=== PATIENT | female | born 1960 | race African-American/Black ===

== ENCOUNTER 2019-03-22 00:03 | Emergency (ER) | payer SELFPAY ==
[~2019-03-22] VITALS: Ht 167.6 cm; Wt 100.0 kg
[~2019-03-22 00:03] MED LIST: AMLO10TA80 PO; ASPI-1079 PO; ASPI-1159 PO; CLON0.2T PO; GLIP10TA10 PO; HYDR-2510 PO; HYDR-4133 PO; INSU3INS6 SUBCUT; METF-416 PO; METO-411 PO; METO100T16 PO; PROSOL IH
[2019-03-22] MEDS ORDERED: KETOROLAC 60MG/2ML VIAL IM ONE (01:30)
[2019-03-22 03:15] VITALS: BP 118/60
== END 2019-03-22 03:37 | disposition home or self-care (01) ==
LOC: ER 00:03
DX: G89.29 Other chronic pain (principal); M25.562 Pain in left knee; E11.9 Type 2 diabetes mellitus without complications; I10 Essential (primary) hypertension; Z79.82 Long term (current) use of aspirin; Z79.4 Long term (current) use of insulin
CPT/HCPCS: 73562; 93971; 96372; 99284; J1885

== ENCOUNTER 2023-07-01 06:22 | Emergency (ER) | payer OTHER ==
[~2023-07-01] VITALS: Ht 172.7 cm; Wt 78.0 kg
[~2023-07-01 06:22] MED LIST changes: +ALBU5SOL18 IH; -ASPI-1159 PO; +ASPI-1497 PO; -HYDR-2510 PO; +HYDR50TA PO; -PROSOL IH
[2023-07-01 06:31] VITALS: BP 170/78; PULSE 94; RESP 18; TEMP 98.4; O2SAT 98
[2023-07-01] MEDS ORDERED: SODIUM CHLORIDE 0.9% 1,000 ML IV ONE (07:15)
[2023-07-01] MEDS ORDERED: ASPIRIN 81MG TABLET PO ONE (07:15)
[2023-07-01 07:45] LABS: BASOPHILS % 0.2 % (0.0-2.0); DIFFERENTIAL COMMENT 0; EOSINOPHILS % 0.8 % (0.0-5.0); HEMATOCRIT. 38.1 % (36.0-48.0); HEMOGLOBIN. 12.3 g/dL (12.0-16.0); LYMPHOCYTES % 29.2 % (20.0-50.0); MEAN CORPUSCULAR HEMOGLOBIN 25.6 pg (28.0-32.0); MEAN CORPUSCULAR HGB CONC 32.4 g/dL (31.0-37.0); MEAN CORPUSCULAR VOLUME 79.1 fL (81.0-99.0); MEAN PLATELET VOLUME 9.1 fl (7.4-10.4); MONOCYTES % 5.8 % (2.0-8.0); PLATELET 273 x1000/uL (130-400); RED BLOOD CELL COUNT 4.81 mill/uL (4.2-5.4); RED CELL DISTRIBUTION WIDTH 14.7 % (11.6-14.6); WHITE BLOOD COUNT 8.9 x1000/uL (4.5-11.0)
[2023-07-01 07:55] LABS: CHLORIDE 109 mEq/L (98-107); INDEX HEMOLYSI 1 (1-3); INDEX ICTERIC 1 (1-4); INDEX LIPEMIC 1 (1-3); POTASSIUM 3.4 mEq/L (3.5-5.1); SODIUM 139 mEq/L (136-145)
[2023-07-01 08:00] LABS: CLARITY URINE CLEAR (CLEAR); COLOR URINE YELLOW (YELLOW); GLUCOSE URINE NEGATIVE (NEGATIVE); KETONES URINE NEGATIVE (NEGATIVE); LEUKOCYTE ESTERASE URINE NEGATIVE (NEGATIVE); NITRITE URINE NEGATIVE (NEGATIVE); OCCULT BLOOD URINE NEGATIVE (NEGATIVE); PROTEIN URINE 1+ (NEGATIVE); SPECIFIC GRAVITY URINE 1.008 (1.005-1.030); UROBILINOGEN URINE 0.2 E.U./dL (0.2-1.0)
[2023-07-01 08:03] LABS: RBC URINE 0-2 /hpf (0-2); YEAST URINE NONE SEEN
[2023-07-01 08:13] LABS: ALANINE AMINOTRANSFERASE 22 IU/L (13-61); ALBUMIN 3.7 g/dL (3.4-5.0); ASPARTATE AMINOTRANSFERASE 12 IU/L (15-37); BETA HYDROXYBUTYRATE 0.2 mMol/L (0.0-0.3); BILIRUBIN TOTAL 0.2 mg/dL (0.1-1.0); CALCIUM 9.5 mg/dL (8.5-10.1); CARBON DIOXIDE 28 mEq/L (21-32); CREATININE 0.9 mg/dL (0.6-1.3); GLUCOSE 211 mg/dL (70-105); NT PRO B-TYPE NATRIURETIC PEP 35 pg/mL (5-125); PROTEIN TOTAL 7.9 g/dL (6.0-8.3); UREA NITROGEN BLOOD 14 mg/dL (7-21)
[2023-07-01 08:16] LABS: BACTERIA URINE FEW; SQUAMOUS EPITHELIAL CELL URINE FEW /lpf (RARE/1+); WBC URINE 0-2 /hpf (0-2)
[2023-07-01 09:55] LABS: TROPONIN I HIGH SENSITIVITY 8 ng/L (<54)
[2023-07-01] MEDS ORDERED: POTASSIUM CHLORIDE 10MEQ TABLET SR PO ONE (10:45)
== END 2023-07-01 12:07 | disposition home or self-care (01) ==
LOC: ER 06:22
DX: R00.2 Palpitations (principal); E11.65 Type 2 diabetes mellitus with hyperglycemia; I10 Essential (primary) hypertension; Z20.822 Contact with and (suspected) exposure to COVID-19; Z88.8 Allergy status to other drugs, medicaments and biological substances; Z79.899 Other long term (current) drug therapy
CPT/HCPCS: 99284; 96360; 96361; 71045; 87426; 80053; 81003; 81025; 82010; 83880; 83690; 85025; 84484; 87804 ×2; 36415; J7030; C9803